=== PATIENT | female | born 1990 | race Asian ===

== ENCOUNTER 2021-12-15 04:15 | Day surgery (SDC) | payer OTHER ==
[2021-11-27 16:30] VITALS: BMI 29.5
[2021-12-15] MEDS ORDERED: ONDANSETRON 4 MG/2 ML VIAL ONE (15:37)
[2021-12-15] MEDS ORDERED: MIDAZOLAM HCL 2 MG/2 ML SINGLE DOSE VIAL ONE (15:37)
[2021-12-15] MEDS ORDERED: PROPOFOL 20 ML ONE (15:37)
[2021-12-15] MEDS ORDERED: ceFAZolin SODIUM 1 GM VIAL IVPB ONE (15:53)
[2021-12-15 18:01] VITALS: RESP 20
[2021-12-15 18:19] VITALS: BP 115/67; PULSE 70; TEMP 97
== END 2021-12-15 17:55 | disposition home or self-care (01) ==
LOC: JASU-SURG 04:15
PROVIDERS: ATTEND Urology
PROC: 0TF4XZZ Fragmentation in Left Kidney Pelvis, External Approach (ICD-10-PCS; principal; 2021-12-15 14:30)
DX: N20.0 Calculus of kidney (principal)
CPT/HCPCS: 81025